=== PATIENT | male | born 1985 | race Caucasian/White ===

== ENCOUNTER 2021-03-11 10:49 | Observation (INO) | payer BC ==
[~2021-03-11] VITALS: Ht 180.3 cm; Wt 99.8 kg
[~2021-03-11 10:49] MED LIST: IBU800 MG PO; PROMETHAZINE-D473 M1 PO
[2021-03-11 12:16] LABS: HEMOGLOBIN 16.3 gm/dl (14.0-17.5); RED BLOOD COUNT 5.02 M/UL (4.20-5.50); WHITE BLOOD COUNT 3.2 K/UL (4.5-11.0)
[2021-03-11 12:41] LABS: BUN/CREATININE RATIO 14 (0-10)
[2021-03-11] MEDS ORDERED: ALLOPURINOL300 MG PO (16:54)
[2021-03-11] MEDS ORDERED: PREDNISONE10 MG PO (17:03)
[2021-03-11] MEDS ORDERED: CLARITIN10 MG PO (17:03)
[2021-03-11] MEDS ORDERED: DAILY VALUE1 EACH PO (17:04)
[2021-03-11] MEDS ORDERED: TYLENOL EXTRA500 MG PO (17:04)
[2021-03-12 04:15] LABS: HEMOGLOBIN 15.7 gm/dl (14.0-17.5); RED BLOOD COUNT 4.92 M/UL (4.20-5.50); WHITE BLOOD COUNT 2.5 K/UL (4.5-11.0)
[2021-03-14] MEDS ORDERED: CODEINE-GUAIFE473 ML PO (11:14)
[2021-03-14] MEDS ORDERED: DEXAMETHASONE6 MG PO (11:35)
== END 2021-03-15 15:01 | disposition home or self-care (01) ==
LOC: ER1 10:49 → CDU 16:17 → MED SURG 4 16:17
PROVIDERS: Emergency Medicine; ADMIT Internal Medicine
PROC: XW033E5 Introduction of Remdesivir Anti-infective into Peripheral Vein, Percutaneous Approach, New Technology Group 5 (ICD-10-PCS; principal; 2021-03-11)
PROC: 3E0333Z Introduction of Anti-inflammatory into Peripheral Vein, Percutaneous Approach (ICD-10-PCS; 2021-03-11)
PROC: 8E0ZXY6 Isolation (ICD-10-PCS; 2021-03-11)
DX: U07.1 COVID-19 (principal); J12.82 Pneumonia due to coronavirus disease 2019; J96.21 Acute and chronic respiratory failure with hypoxia; I10 Essential (primary) hypertension; Z84.89 Family history of other specified conditions; Z91.14 Patient's other noncompliance with medication regimen; Z99.81 Dependence on supplemental oxygen
CPT/HCPCS: 36415; 36600; 71045; 80053; 82550; 82553; 82803; 83874; 84484; 85025; 85379; 85610; 85730; 87040; 93005; 94640; 94664; 94760; 96374; 99285; G0378 ×2; J0456; J0696; J1100; J1644; J1650; J2405; J7030; Q9967

== ENCOUNTER → 2021-04-26 | Outpatient (CLI) | payer BC ==
[~2021-04-26] MED LIST changes: +ALLOPURINOL300 MG PO; +CLARITIN10 MG PO; +CODEINE-GUAIFE473 ML PO; +DAILY VALUE1 EACH PO; +DEXAMETHASONE6 MG PO; +PREDNISONE10 MG PO; +TYLENOL EXTRA500 MG PO
== END ==
LOC: EXRD 10:05
DX: R06.02 Shortness of breath (principal)
CPT/HCPCS: 71046